=== PATIENT | male | born 1985 | race Caucasian/White ===

== ENCOUNTER 2023-03-14 16:58 | Emergency (ER) | payer SELFPAY ==
[2023-03-14 17:07] VITALS: BP 138/84; PULSE 85; RESP 18; O2SAT 95
[2023-03-14 17:08] VITALS: BMI 30.5
--- NOTE | 2023-03-14 17:08 | XR_ITS ---
PROCEDURE INFORMATION: Exam: XR Right Femur Exam date and time: 03/14/2023 5:35 PM Age: 37 years old Clinical indication: Pain; Thigh; Right; Additional info: Injury TECHNIQUE: Imaging protocol: Radiologic exam of the right femur. Views: 2 views. COMPARISON: No relevant prior studies available. FINDINGS: Bones/joints: Comminuted fracture in the midshaft of the right femur has overlap of the fracture fragments. The distal fracture fragment is displaced posteriorly. The right femoral head articulates appropriately within the acetabulum. No abnormalities in the right knee. Soft tissues: No soft tissue masses or radiopaque foreign bodies. IMPRESSION: Comminuted midshaft fracture of the right femur with posterior displacement of the distal fragment. Fracture fragments also overlap.
[2023-03-14 17:09] VITALS: BP 138/84; PULSE 81; RESP 16; TEMP 36.4; O2SAT 95; BMI 30.4
[2023-03-14 17:14] LABS: Basophils # 0.1 K/mm3 (0-0.2); Basophils % 0.6 % (0.1-2.0); Eosinophils # 0.8 K/mm3 (0.0-0.4); Eosinophils % 5.6 % (0.1-12.0); Hematocrit 41.7 % (42.0-52.0); Hemoglobin 13.4 g/dL (14.1-18.0); Lymphocytes # 5.2 K/mm3 (0.7-4.5); Mean Corpuscular HGB Conc 32.2 g/dL (31.8-35.4); Mean Corpuscular Hemoglobin 28.9 pg (27.0-31.2); Mean Corpuscular Volume 89.7 fl (80-94); Mean Platelet Volume 8.5 fl (7.4-10.4); Monocytes # 0.6 K/mm3 (0.1-1.0); Monocytes % 4.6 % (1.7-9.3); Neutrophils % 51.2 % (37.0-80.0); Platelet Count 306 K/mm3 (142-424); Red Blood Count 4.65 M/mm3 (4.60-6.20); Red Cell Distribution Width 13.6 % (11.5-17.5); White Blood Count 13.8 K/mm3 (4.8-10.8)
[2023-03-14 17:30] VITALS: BP 136/82; PULSE 76; RESP 22; O2SAT 96
--- NOTE | 2023-03-14 17:30 | PC.NURSE ---
PAGED ORTHO HOT SHOT DR RAMIREZ.
--- NOTE | 2023-03-14 17:35 | PC.NURSE ---
placed call to [facility] for transfer team for trauma
--- NOTE | 2023-03-14 17:42 | HMH.EDGENADL ---
Discharge Plan Disposition Patient Disposition: Xfer Short-Term Hosp Condition: Fair Prescriptions Prescriptions: No Action No Known Home Medications Referrals Follow up/Referrals: Provider,Referral, [Primary Care Provider] - See instructions Clinical Impressions Clinical Impression: Closed femur fracture Stand Alone Forms Stand Alone Forms: Transfer Record - ED Discharge ED Provider: John Martinez Adult HPI General Chief complaint: Fall Stated complaint: AO 03/14 Possible right broken Femur Time Seen by Provider: 03/14/23 17:02 Mode of Arrival: Wheelchair Source of Information: Patient and Relative Limitations: No Limitations Description of Symptoms (Recalled from ER Triage Doc. by RN): pt comes in with possible right broken femur. 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 pt unsure of what he hit his leg on. palpable pulse present in foot and ankle. History of Present Illness HPI narrative: 37yo M presents to the ER complaining of possible right femur fracture. 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 No previous medical history. No head strike or LOC. Complains of no additional pain. Related Data Home Medications Medication Instructions Recorded Confirmed No Known Home Medications 03/14/23 03/14/23 Allergies Allergy/AdvReac Type Severity Reaction Status Date / Time No Known Allergies Allergy Verified 03/14/23 17:08 [facility] Disclaimer: The information contained in this section may have been updated after the patient was seen, as this information can be updated by other users. Social History Smoking Status: Never smoker alcohol intake: never current occupational status: unemployed Travel in the last 8 weeks: None ROS Obtained: Yes Systems reviewed as appropriate & no additional complaints except as documented Physical Exam General General appearance: alert and in no apparent distress Head Head exam: atraumatic Eye Eye exam: Present PERRL and EOMI Neck Neck exam: Present full ROM and trachea midline Chest Chest inspection: Present symmetric chest wall rise Respiratory Respiratory exam: Present normal lung sounds bilaterally; Absent respiratory distress or wheezes Cardiovascular Cardiovascular exam: Present regular rate, normal rhythm and normal heart sounds Abdominal Exam Abdominal exam: Present soft and normal bowel sounds; Absent distention or tenderness Extremities Exam Extremities exam: Present tenderness (Right femur) and normal capillary refill; Absent calf tenderness Neurological Exam Neurological exam: Present alert, oriented X3 and CN II-XII intact; Absent motor sensory deficit Psychiatric Psychiatric exam: Present normal affect and normal mood Skin Skin exam: Present warm and dry Medical Decision Making Medical Records Medical records reviewed: Yes I reviewed the patient's medical records. [place] Inquiry Pt receiving controlled substance: No Vital Signs: 03/14/23 17:09 03/14/23 17:07 03/14/23 17:30 Temperature 97.6 F Temperature Source Oral Pulse Rate 85 76 Pulse Rate [Left] 81 Respiratory Rate 16 18 22 Blood Pressure 138/84 136/82 Blood Pressure [Right Arm] 138/84 Blood Pressure Mean 97 101 Blood Pressure Mean [Right Arm] 102 02 Sat by Pulse Oximetry 95 95 96 Lab Data Lab results reviewed: Yes I reviewed the patient's lab results. Lab Results 03/14/23 17:05: WBC 13.8 H, RBC 4.65, Hgb 13.4 L, Hct 41.7 L, MCV 89.7, MCH 28.9, MCHC 32.2, RDW 13.6, Plt Count 306, MPV 8.5, Neut % (Auto) 51.2, Lymph % (Auto) 38.0, [place] % (Auto) 4.6, Eos % (Auto) 5.6, Baso % (Auto) 0.6, Neut # (Auto) 7.0, Lymph # (Auto) 5.2 H, [place] # (Auto) 0.6, Eos # (Auto) 0.8 H, Baso # (Auto)
--- NOTE | 2023-03-14 17:54 | PC.NURSE ---
Dr Martinez speaking with [facility]
[2023-03-14 18:00] VITALS: BP 143/86; PULSE 78; O2SAT 97
[2023-03-14 18:12] LABS: Alanine Aminotransferase 25 U/L (12-78); Albumin Level 4.3 g/dl (3.5-5.0); Albumin/Globulin Ratio 1.5 (1.1-1.8); Alkaline Phosphatase 45 U/L (38-126); Anion Gap 10.9 mEq/L (5-15); Aspartate Amino Transferase 31 U/L (17-59); Bilirubin,Total 0.3 mg/dl (0.2-1.3); Blood Urea Nitrogen 17 mg/dl (9-20); Calcium 8.7 mg/dl (8.4-10.2); Carbon Dioxide 23 mmol/L (22.0-30.0); Chloride 106 mmol/L (98-107); Creatinine Clearance Estimated 149 mL/min (50-200); Estimated Glomerular Filt Rate 85 ml/min (>60); GFR (African American) 103 ML/MIN (>60); Globulin 2.8 g/dL (1.3-3.2); Glucose 111 mg/dl (74-100); Potassium 3.9 mmoL/L (3.5-5.1); Sodium 136 mmol/L (136-145); Total Protein,Serum 7.1 g/dl (6.3-8.2)
--- NOTE | 2023-03-14 18:12 | PC.NURSE ---
CALLED [facility] FOR TRANSFER TO .
--- NOTE | 2023-03-14 18:17 | PC.NURSE ---
report called to Anupama at [facility]
[2023-03-14 18:30] VITALS: BP 132/87; PULSE 74; O2SAT 96
[2023-03-14 18:44] VITALS: BP 132/87; PULSE 74; RESP 18; TEMP 36.7; O2SAT 96
--- NOTE | 2023-03-14 19:06 | PC.NURSE ---
traction splint applied to R leg prior to transportation to
== END 2023-03-14 19:04 | disposition short-term general hospital (02) ==
PROVIDERS: Emergency Provider Family Medicine
DX: S72.321A Displaced transverse fracture of shaft of right femur, initial encounter for closed fracture (principal); W17.89XA Other fall from one level to another, initial encounter
CPT/HCPCS: 73552; 80053; 85025; 86850; 96374; 96375; 96376; 99285; J2405